=== PATIENT | female | born 1990 | race Caucasian/White ===

== ENCOUNTER 2019-12-17 18:59 | Emergency (ER) | payer OTHER ==
[~2019-12-17] VITALS: Ht 165.1 cm; Wt 53.5 kg
[2019-12-17 19:00] VITALS: BP 110/67
--- NOTE | 2019-12-17 19:00 | NUR ---
ER Nurse Note: Pt walked in c/o fever of 102F since 12/15 and shortness of breathing since AM. Pt denies recent travels; denies cough. Pt stated she was at home, resting when s/s occured. Pt stated she took tylenol prior to arrival. Oral temp 98.3F at triage.
--- NOTE | 2019-12-17 19:10 | NUR ---
ED Nurse Note: Pt cleared by health care Provider for discharge. DC instructions was given and explained to pt and verbalized understanding of teachings. All medical deviecs such as ID band removed. Pt is AAO x4, ambulatory and left with all personal belongings.
--- NOTE | 2019-12-17 19:39 | Emergency Room Report ---
History of Present Illness General Chief Complaint: Dyspnea/Respdistress Source: Patient Present Illness HPI 29-year-old female presents ED complaining of fever and shortness of breath x2 days. States she had a fever at home and took Tylenol. Afebrile in triage. States she felt short of breath today. Denies cough. States that she went to urgent care yesterday and was swabbed for COVID test. No sick contacts or recent travel. No other aggravating relieving factors. Denies any other signs and symptoms Allergies: Coded Allergies: No Known Allergies (Unverified , 12/17/19) COVID-19 Screening Contact w/high risk pt: No Recent Travel to affected area: No Experienced COVID-19 symptoms?: No COVID-19 symptoms experienced: Fever (T>100.4F or >38C), Shortness of Breath Patient History Past Medical History: none Past Surgical History: none Pertinent Family History: none Social History: Denies: smoking, alcohol use, drug use Last Menstrual Period: 11/2019 Now: No Immunizations: UTD Reviewed Nursing Documentation: PMH: Agreed; PSxH: Agreed Nursing Documentation-PMH Past Medical History: No Stated History Review of Systems All Other Systems: negative except mentioned in HPI Physical Exam Vital Signs Date Time Temp Pulse Resp B/P (MAP) Pulse Ox O2 Delivery O2 Flow Rate FiO2 12/17/19 18:49 98.2 99 18 110/67 (81) 97 Room Air Sp02 EP Interpretation: reviewed, normal General Appearance: no apparent distress, alert, GCS 15, non-toxic Head: normocephalic, atraumatic Eyes: bilateral eye normal inspection, bilateral eye PERRL ENT: hearing grossly normal, normal pharynx, no angioedema, normal voice Neck: full range of motion, supple/symm/no masses Respiratory: chest non-tender, lungs clear, normal breath sounds, speaking full sentences Cardiovascular #1: regular rate, rhythm, no edema Cardiovascular #2: 2+ carotid (R), 2+ carotid (L), 2+ radial (R), 2+ radial (L) , 2+ dorsalis pedis (R), 2+ dorsalis pedis (L) Gastrointestinal: normal bowel sounds, non tender, soft, non-distended, no guarding, no rebound Rectal: deferred Genitourinary: normal inspection, no CVA tenderness Musculoskeletal: back normal, normal range of motion, gait/station normal, non- tender Neurologic: alert, motor strength/tone normal, oriented x3, sensory intact, responsive, speech normal Psychiatric: judgement/insight normal, memory normal, mood/affect normal, no suicidal/homicidal ideation Reflexes: 3+ bicep (R), 3+ bicep (L), 3+ tricep (R), 3+ tricep (L), 3+ knee (R) , 3+ knee (L) Lymphatic: no adenopathy Medical Decision Making Diagnostic Impression: Primary Impression: Upper respiratory infection Qualified Codes: J06.9 - Acute upper respiratory infection, unspecified ER Course Hospital Course 29-year-old female presents with fever, shortness of breath Differential diagnoses include: URI, pharyngitis, otitis media, asthma Clinical course Patient placed in isolation tent. I wore full PPE. After initial history physical exam reveals young female in no acute distress. Lungs clear. Full breath sounds bilaterally. no signs of shortness of breath on exam Vitals stable. I discussed findings with patient. Consideration for upper respiratory infection versus COVID. Patient has been already swabbed and is awaiting results. No further interventions at this time. We will treat symptoms clinically. Instructed to return to ED if her symptoms do not improve and she develops worsening shortness of breath Safe for discharge for close outpatient follow-up. Diagnosis - URI Stable and discharged home. Instructed to followup with PMD. Return to ED if symptoms recur or worsen Last Vital Signs Date Time Temp Pulse Resp B/P (MAP) Pulse Ox O2 Delivery O2 Flow Rate FiO2 12/17/19 19:10 98.2 99 18 110/67 97 Room Air Status: improved Disposition: HOME, SELF-CARE Condition: Stable Patient Instructions: Upper Respiratory Infection, Adult, [id number] Additional Instructions: stay home and self-quarantine for 14 days. take tylenol for fever. if your shortness of breath continues come back to the ER. Justin Eddy MD Dec 17, 2019 19:39
== END 2019-12-17 19:10 | disposition home or self-care (01) ==
LOC: EDBD 18:59 → EMR 19:06
DX: J06.9 Acute upper respiratory infection, unspecified (principal); R50.9 Fever, unspecified
CPT/HCPCS: 99281